=== PATIENT | female | born 1945 | race Caucasian/White ===

== ENCOUNTER 2016-10-24 09:50 | Emergency (ER) | payer OTHER, MEDICARE ==
[~2016-10-24] VITALS: Ht 162.6 cm; Wt 104.3 kg
[~2016-10-24 09:50] MED LIST: ALLOPURINOL100 MG PO; AMIODARONE200 MG PO; ANTIVERT 12.512.5 MG PO; BUPROPION XL300 M1 PO; CARVEDILOL6.25 MG PO; CEPHALEXIN500 MG PO; CHILDREN'S ASPI81 M1 PO; CITALOPRAM HYDR10 MG PO; CORDARONE 100M100 MG PO; COREG 25 MG TAB25 MG PO; COREG12.5 M1 PO; ELIQUIS5 MG PO; FUROSEMIDE80 MG PO; GABAPENTIN300 M2 PO; GOLYTELY 40004000 ML PO; HUMULIN-N1000 U/10 SC; ISOSORBIDE MON120 M1 PO; ISOSORBIDE MONO30 MG PO; LACTULOSE10 GM/15 M PO; LIPITOR40 M1 PO; METANX 2.8 MG-21 TAB PO; MIRALAX17 GM PO; NOVOLIN N100 UNIT/1 SC; NOVOLOG100 U/ML SC; PANTOPRAZOLE SO40 MG PO; PARICALCITOL1 MCG PO; PERCOCET 325 MG1 TA2 PO; PROBIOTICA100 Millio PO; SILVADENE CREA400 GM TOP; TIMOLOL MALEATE10 M1 OPH; TIMOPTIC IN OCUD0.5% OP; TRAMADOL HCL50 M1 PO; VITAMIN D250000 UNIT PO; XALATAN 0.50 GTT/1 B OPH
--- NOTE | 2016-10-24 09:56 | ED DYSPNEA/ASTHMA COMPLAINT ---
History of Present Illness General Chief Complaint: Dyspnea (COPD, CHF, Other) Stated Complaint: SOB WITH COUGH Source: patient, family, old records Exam Limitations: no limitations Vital Signs & Intake/Output Vital Signs & Intake/Output ED Intake and Output 10/25 0000 10/24 1200 Intake Total 90 Output Total Balance 90 Intake, Oral 90 Patient 230 lb Weight Allergies Coded Allergies: NO KNOWN ALLERGIES (07/26/12) Reconcile Medications Allopurinol 100 MG TAB 1 TAB PO DAILY GOUT (Reported) Amiodarone Hydrochloride (Amiodarone) 200 MG TAB 1 TAB PO DAILY HR (Reported) Apixaban (Eliquis) 5 MG TABLET 5 MG PO BID BLOOD THINNER/PREVENT CLOT Ascorbate Calcium (Vitamin C) 500 MG TABLET 1 TAB PO DAILY SUPPLEMENT ( Reported) Aspirin (Children's Aspirin) 81 MG TAB.CHEW 1 TAB PO 1300 HEART HEALTH ( Reported) Atorvastatin Calcium (Lipitor) 40 MG TABLET 1 TAB PO 1300 CHOLESTEROL ( Reported) Bupropion HCl (Bupropion XL) 300 MG TAB.ER.24H 1 TAB PO 0100 MENTAL HEALTH ( Reported) Carvedilol (Coreg) 12.5 MG TABLET 1 TAB PO BID HEART (Reported) Doxycycline Hyclate 100 MG TABLET 1 TAB PO BID pneumonia Ergocalciferol (Vitamin D2) (Vitamin D2) 50,000 UNIT CAPSULE 1 CAP PO Q30D SUPPLEMENT (Reported) Ferrous Sulfate (Unknown Strength) TABLET (Unknown Dose) PO DAILY SUPPLEMENT (Reported) Furosemide 80 MG TAB 2 TAB PO DAILY WATER PILL (Reported) Gabapentin 300 MG CAPSULE 1 CAP PO 1300 NEUROPATHY (Reported) Insulin NPH Human Isophane (Novolin N) 100 UNIT/ML VIAL 30-50 U SC DIABETES ( Reported) Isosorbide Mononitrate (Isosorbide Mononitrate ER) 120 MG TAB.ER.24H 1 TAB PO DAILY HEART (Reported) L-Methylfolate/Methylcobalam (Metanx 2.8 MG-2 MG-25 MG) 1 TAB TAB 1 TAB PO DAILY SUPPLEMENT (Reported) Lactobacillus Reuteri (Probiotica) 100 Million ORG CTB 1 CAP PO DAILY SUPPLEMENT (Reported) Lactulose 10 GRAM/15 ML SOLUTION 30 ML PO DAILY CONSTIPATION (Reported) Latanoprost (Xalatan 0.005% 2.5 Ml) 0.005 % DROPS 1 GTT OPH QPM EYE (Reported ) Levothyroxine Sodium 175 MCG TABLET 1 TAB PO DAILY AC THYROID (Reported) Pantoprazole Sodium 40 MG TABLET.DR 1 TAB PO DAILY GI (Reported) Paricalcitol 1 MCG CAPSULE 1 CAP PO DAILY SUPPLEMENT (Reported) Sertraline HCl 50 MG TABLET 1 TAB PO DAILY MENTAL HEALTH (Reported) Spironolactone 25 MG TABLET 1 TAB PO 0100 UNKNOWN (Reported) TIMOLOL MALEATE/PF (Timoptic 0.5% Ocudose Drop) 0.5 % DROPERETTE 1 DROP OP DAILY BOTH EYES (Reported) Tramadol HCl 50 MG TABLET 1 TAB PO 4 TIMES/DAY PAIN (Reported) Triage Nurses Notes Reviewed? yes Onset: Gradual Duration: day(s): (2-3) Timing: recent history Severity: moderate Activities at Onset: none Associated Symptoms: cough, YELLOW SPUTUM, BACK PAIN, DYSPNEA ON EXERTION HPI: This is a 71-year-old female with history of insulin dependent diabetes, congestive heart failure, history of previous [facility] presents here for chief complaint of cough, shortness of breath and yellow sputum production for the past 2 days. She started with sinus infection on Laila and slowly has gotten worse. Denies any fever but has had some chills. No difficulty sleeping. She does use CPAP at night. Patient short of breath with exertion. She denies any chest pain. She is compliant with all her medications. Her appetite has been diminished and she did not eat dinner yesterday. This morning she had a low fasting blood glucose and had to take some glucose pills. Denies any recent travel or sick contacts. Past History Travel History Traveled to [place] past 21 day No Medical History Any Pertinent Medical History? 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 No Review of Systems Review of Systems Constitutional: Reports: chills, weakness. Denies: fever. EENTM: Reports: no symptoms. Respiratory: Reports: cough, short of breath, sputum production. Cardiovascular: Denies: chest pain, palpitations, peripheral edema, syncope. GI: Denies: abdominal pain. Genitourinary: Reports: no symptoms. Musculoskeletal: Reports: no symptoms. Skin: Reports: no symptoms. Neurological/Psychological: Reports: no symptoms. Hematologic/Endocrine: Denies: bruising, bleeding, polyuria, polydipsia. Immunologic/Allergic: Denies: splenectomy. All Other Systems: Reviewed and Negative Physical Exam Physical Exam General Appearance: well developed/nourished, alert, awake, mild distress, PALE Head: atraumatic, normal appearance Eyes: Bilateral: normal appearance, PERRL, EOMI. Ears, Nose, Throat: normal pharynx, normal ENT inspection, hearing grossly normal Neck: normal inspection, supple, full range of motion Respiratory: decreased breath sounds, crackles (LEFT MID LUNG, LEFT BASE) Cardiovascular: regular rate/rhythm Peripheral Pulses: 2+ radial (R), 2+ radial (L) Gastrointestinal: normal bowel sounds, soft, non-tender Extremities: normal inspection, normal range of motion, no edema Neurologic/Psych: no motor/sensory deficits, awake, alert, oriented x 3, normal gait Skin: intact, warm/dry, rash Core Measures ACS in differential dx? No Severe Sepsis Present: No Septic Shock Present: No Progress Differential Diagnosis: bronchitis, CHF, pulmonary embolism, pneumonia Plan of Care: Orders Procedure Date/time Status RT ED ORDERS 10/24 1045 Active EKG 10/24 1028 Active RT ED ORDERS 10/24 1020 Active BLOOD CULTURE 10/24 1020 Active TROPONIN LEVEL 10/24 1020 Complete COMPREHENSIVE METABOLIC PANEL 10/24 1020 Complete CBC WITHOUT DIFFERENTIAL 10/24 1020 Complete B-TYPE NATRIURETIC PEP (BNP) 10/24 1020 Complete Laboratory Tests 10/24/16 1039: Anion Gap 17 H, Estimated GFR 17 L, BUN/Creatinine Ratio 22.1, Glucose 141 H, Calcium 9.6, Total Bilirubin 0.9, AST 31, ALT 40, Alkaline Phosphatase 121, Troponin I 0.06, Rtk-U-Badaokirkza Pept 5660 H, Total Protein 7.6, Albumin 4.0, Globulin 3.6, Albumin/Globulin Ratio 1.1, CBC w Diff NO MAN DIFF REQ, RBC 4.67, MCV 90.4, MCH 29.9, RDW 15.2 H, MPV 8.6, Gran % 69.6, Lymphocytes % 15.3 L, Monocytes % 10.6 H, Eosinophils % 4.2, Basophils % 0.3, Absolute Granulocytes 5.4, Absolute Lymphocytes 1.2, Absolute Monocytes 0.8 H, Absolute Eosinophils 0.3, Absolute Basophils 0, PUBS MCHC 33.0 Microbiology 10/24 1105 BLOOD: Blood Culture - RECD 10/24 1041 BLOOD: Blood Culture - RECD EKG, TELE MONITOR, CXR, DUONEB, TRAMADOL ORDERED FOR PAIN. BC X 2. LEFT LUNG CRACKLES AND BACK PAIN. CXR READ WNL. PATIENT WITH CLINICAL PNEUMONIA. AMBULATORY WITH SAT IN HI 80 'S, LOW 90'S. PATIENT HAS OXYGEN AT HOME AND STATES SHE FEELS COMFORTABLE TO GO HOME. NO TACHYCARDIA, NO AMS. WILL FOLLOW UP WITH PCP IN OFFICE. (KACY REHMAN,BE) Diagnostic Imaging: Viewed by Me: Radiology Read. Discussed w/RAD: Radiology Read. CXR Impression: PATIENT: JUAN WOLFF PRESENT AGE: 71 PATIENT ACCOUNT NO: [id number] : 44 LOCATION: [facility] ORDERING PHYSICIAN: BE WOODRUFF MD SERVICE DATE: 10/24/16 EXAM TYPE: RAD - XRY-CHEST XRAY , PA AND LATERAL EXAMINATION: XR CHEST CLINICAL INFORMATION: Cough, yellow sputum. COMPARISON: 09/09/2014 and 06/19/2013. TECHNIQUE: PA and lateral views of the chest were obtained. FINDINGS: Both lung olson are symmetrically expanded and appear clear. Subtle haziness seen at both lung bases appears stable since multiple prior studies dating back to 06/19/2013. There is no new focal airspace disease suggestive of pneumonia identified. The cardiomediastinal silhouette remains mildly enlarged. There is no evidence of any pulmonary venous hypertension or CHF present. Specific note is made of a radiopaque device which is projecting from the left lateral chest wall with its lead placed over the anterior wall of the sternum slightly to the left of the midline. Please correlate clinically. There is no pleural effusion present. The visualized upper abdomen is unremarkable. IMPRESSION: No acute cardiopulmonary disease. Specifically, no radiographic evidence of pneumonia. DICTATED BY: KRIS MAHER MD DATE/TIME DICTATED:10/24/161023 ELECTRICIAN REFINERY:ISRAEL DATE/ TIME TRANSCRIBED:10/24/161023 CONFIDENTIAL, DO NOT COPY WITHOUT APPROPRIATE AUTHORIZATION. <Electronically signed in Other Vendor System> SIGNED BY: KRIS MAHER MD 10/24/16 1035 Initial ED EKG: AFIB Departure Departure Time of Disposition: 1152 Disposition: HOME OR SELF CARE Condition: Stable Clinical Impression Primary Impression: Pneumonia Referrals: GARO REHMAN,CARMEN Emanuel (PCP/Family) Additional Instructions: Take the antibiotic as directed. Use the inhaler as needed. Follow-up with Dr. Butt in the office early this week. If you need more oxygen than usual at home or if you start to have high fevers at home and feel more short of breath return immediately to the emergency room. Departure Forms: Customer Survey General Discharge Information Prescriptions: Current Visit Scripts Doxycycline Hyclate 1 TAB PO BID #19 TAB Critical Care Note Critical Care Note Critical Care Time: non-applicable
[2016-10-24] MEDS ORDERED: SERTRALINE HCL50 MG PO (10:29)
[2016-10-24] MEDS ORDERED: SPIRONOLACTONE25 M1 PO (10:30)
[2016-10-24] MEDS ORDERED: LEVOTHYROXINE175 MCG PO (10:31)
[2016-10-24] MEDS ORDERED: FERROUS SULFAT325 M3 PO (10:33)
[2016-10-24] MEDS ORDERED: VITAMIN C500 M6 PO (10:33)
--- NOTE | 2016-10-24 10:35 | RADIOLOGY REPORT ---
EXAMINATION: XR CHEST CLINICAL INFORMATION: Cough, yellow sputum. COMPARISON: 09/09/2014 and 06/19/2013. TECHNIQUE: PA and lateral views of the chest were obtained. FINDINGS: Both lung olson are symmetrically expanded and appear clear. Subtle haziness seen at both lung bases appears stable since multiple prior studies dating back to 06/19/2013. There is no new focal airspace disease suggestive of pneumonia identified. The cardiomediastinal silhouette remains mildly enlarged. There is no evidence of any pulmonary venous hypertension or CHF present. Specific note is made of a radiopaque device which is projecting from the left lateral chest wall with its lead placed over the anterior wall of the sternum slightly to the left of the midline. Please correlate clinically. There is no pleural effusion present. The visualized upper abdomen is unremarkable. IMPRESSION: No acute cardiopulmonary disease. Specifically, no radiographic evidence of pneumonia.
[2016-10-24 11:12] LABS: ABSOLUTE BASOPHIL COUNT 0 /CUMM (0.0-0.2); ABSOLUTE EOSINOPHIL COUNT 0.3 /CUMM (0.0-0.7); ABSOLUTE GRANULOCYTE CT 5.4 /CUMM (1.4-6.5); ABSOLUTE LYMPH COUNT 1.2 /CUMM (1.2-3.4); ABSOLUTE MONOCYTE COUNT 0.8 /CUMM (0.10-0.60); BASOPHIL % 0.3 % (0.0-2.0); EOSINOPHIL % 4.2 % (0-5); GRANULOCYTE % 69.6 % (42.2-75.2); HEMATOCRIT 42.2 % (37-47); MEAN CORPUSCULAR HGB 29.9 PG (27.0-31.0); MEAN CORPUSCULAR VOLUME 90.4 FL (81.0-99.0); MEAN PLATELET VOLUME 8.6 FL (7.4-10.4); PLATELET COUNT 267 /CUMM (130-400); RBC DISTRIBUTION WIDTH 15.2 % (11.5-14.5); RED BLOOD CELL CT 4.67 /CUMM (4.20-5.40); WHITE BLOOD CELL COUNT 7.7 /CUMM (4.8-10.8)
[2016-10-24] MEDS ORDERED: DOXYCYCLINE HY100 M4 PO (11:53)
[2016-10-24 11:56] VITALS: BP 168/86
== END 2016-10-24 12:07 ==
LOC: ERH 09:50
PROVIDERS: Emergency Medicine
DX: J18.9 Pneumonia, unspecified organism (principal)
CPT/HCPCS: 1263; 87040; 93005; 93010

== ENCOUNTER 2017-01-22 01:44 | Emergency (ER) | payer OTHER, MEDICARE ==
[~2017-01-22 01:44] MED LIST changes: +DOXYCYCLINE HY100 M4 PO; +FERROUS SULFAT325 M3 PO; +LEVOTHYROXINE175 MCG PO; +SERTRALINE HCL50 MG PO; +SPIRONOLACTONE25 M1 PO; +VITAMIN C500 M6 PO
--- NOTE | 2017-01-22 01:57 | ED CRITICAL CARE ---
History of Present Illness General Chief Complaint: Cardiopulmonary Resuscitation Stated Complaint: BIBA CPR Source: family, old records, EMS Exam Limitations: clinical condition Vital Signs & Intake/Output Vital Signs & Intake/Output . Allergies Coded Allergies: NO KNOWN ALLERGIES (07/26/12) Reconcile Medications Allopurinol 100 MG TAB 1 TAB PO DAILY GOUT (Reported) Amiodarone Hydrochloride (Amiodarone) 200 MG TAB 1 TAB PO DAILY HR (Reported) Apixaban (Eliquis) 5 MG TABLET 5 MG PO BID BLOOD THINNER/PREVENT CLOT Ascorbate Calcium (Vitamin C) 500 MG TABLET 1 TAB PO DAILY SUPPLEMENT ( Reported) Aspirin (Children's Aspirin) 81 MG TAB.CHEW 1 TAB PO 1300 HEART HEALTH ( Reported) Atorvastatin Calcium (Lipitor) 40 MG TABLET 1 TAB PO 1300 CHOLESTEROL ( Reported) Bupropion HCl (Bupropion XL) 300 MG TAB.ER.24H 1 TAB PO 0100 MENTAL HEALTH ( Reported) Carvedilol (Coreg) 12.5 MG TABLET 1 TAB PO BID HEART (Reported) Doxycycline Hyclate 100 MG TABLET 1 TAB PO BID pneumonia Ergocalciferol (Vitamin D2) (Vitamin D2) 50,000 UNIT CAPSULE 1 CAP PO Q30D SUPPLEMENT (Reported) Ferrous Sulfate (Unknown Strength) TABLET (Unknown Dose) PO DAILY SUPPLEMENT (Reported) Furosemide 80 MG TAB 2 TAB PO DAILY WATER PILL (Reported) Gabapentin 300 MG CAPSULE 1 CAP PO 1300 NEUROPATHY (Reported) Insulin NPH Human Isophane (Novolin N) 100 UNIT/ML VIAL 30-50 U SC DIABETES ( Reported) Isosorbide Mononitrate (Isosorbide Mononitrate ER) 120 MG TAB.ER.24H 1 TAB PO DAILY HEART (Reported) L-Methylfolate/Methylcobalam (Metanx 2.8 MG-2 MG-25 MG) 1 TAB TAB 1 TAB PO DAILY SUPPLEMENT (Reported) Lactobacillus Reuteri (Probiotica) 100 Million ORG CTB 1 CAP PO DAILY SUPPLEMENT (Reported) Lactulose 10 GRAM/15 ML SOLUTION 30 ML PO DAILY CONSTIPATION (Reported) Latanoprost (Xalatan 0.005% 2.5 Ml) 0.005 % DROPS 1 GTT OPH QPM EYE (Reported ) Levothyroxine Sodium 175 MCG TABLET 1 TAB PO DAILY AC THYROID (Reported) Pantoprazole Sodium 40 MG TABLET.DR 1 TAB PO DAILY GI (Reported) Paricalcitol 1 MCG CAPSULE 1 CAP PO DAILY SUPPLEMENT (Reported) Sertraline HCl 50 MG TABLET 1 TAB PO DAILY MENTAL HEALTH (Reported) Spironolactone 25 MG TABLET 1 TAB PO 0100 UNKNOWN (Reported) TIMOLOL MALEATE/PF (Timoptic 0.5% Ocudose Drop) 0.5 % DROPERETTE 1 DROP OP DAILY BOTH EYES (Reported) Tramadol HCl 50 MG TABLET 1 TAB PO 4 TIMES/DAY PAIN (Reported) Triage Nurses Notes Reviewed? yes Onset: Abrupt Timing: single episode today Severity: severe Associated Symptoms: unknown HPI: 71 yo woman, h/o afib/aflutter, diabetes, presents in cardiac arrest. Per her , "We were playing cards with friends... I heard a thump... I went to the kitchen and she wasn't moving... I knew she was ... I called 911." The medics arrived at approximately 1:06am. She was asystolic. Epi given x 3 without response. Past History Travel History Traveled to [place] past 21 day No Medical History Any Pertinent Medical History? 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 No Review of Systems Review of Systems Constitutional: Reports: no symptoms. Eyes: Reports: no symptoms. Ears, Nose, Throat, Mouth: Reports: no symptoms. Respiratory: Reports: no symptoms. Cardiovascular: Reports: no symptoms. Gastrointestinal/Abdominal: Reports: no symptoms. Genitourinary: Reports: no symptoms. Musculoskeletal: Reports: no symptoms. Skin: Reports: no symptoms. Neurological/Psychological: Reports: no symptoms. All Other Systems: Reviewed and Negative Physical Exam Physical Exam General Appearance: well developed/nourished, unresponsive Head: atraumatic, per-oral cyanosis Eyes: Bilateral: other (fixed/dilated/no corneal reflx). Ears, Nose, Throat, Mouth: perioral cyanosis Neck: normal inspection Respiratory: good breath sounds with bag mask ventilation Cardiovascular: good pulses with chest compressions Gastrointestinal: slightly distended. Back: normal inspection Extremities: pallors, stiff extremities Neurologic/Psych: no spontaneous movement. Skin: mottled, pallor Core Measures ACS in differential dx? No CVA/TIA Diagnosis: No Severe Sepsis Present: No Septic Shock Present: No Progress Differential Diagnoses I considered the following diagnoses in my evaluation of the patient: cardiac arrest of wide differential Plan of Care: see below. Initial ED EKG: none Rhythm Strip: asystolic on 2 leads. Departure Departure Disposition: Condition: Stable Clinical Impression Primary Impression: Cardiac arrest Referrals: GARO REHMAN,CARMEN Emanuel (PCP/Family) Departure Forms: General Discharge Information Comments pt in field x 40 plus minutes. asystoic throughout... epi x 3 in field without response. pt with early signs of rigor mortis setting in. pt pronounced at 1: 48am discussed at length with . Critical Care Note Critical Care Note Critical Care Time: 30-74 min
== END 2017-01-22 01:48 | disposition expired ==
LOC: ERH 01:44
DX: I46.9 Cardiac arrest, cause unspecified (principal)
CPT/HCPCS: 1387; 94799